=== PATIENT | female | born 1940 | race Caucasian/White ===

== ENCOUNTER → 2016-10-18 | Outpatient (CLI) | payer MEDICARE, OTHER, BC ==
[~2016-10-18] MED LIST: ASPI81TA85 PO; CALTTAB5 PO; DIOV160T2 PO; ESTE500T PO; MULT1TAB10 PO; OCUVTAB PO; OGEN PO; PRIL20CA9 PO; PROA1AER INH; VITA20008 PO; [UNRECOGNIZED DRUG - OTHER] INH
--- NOTE | 2016-10-18 15:38 | REPMRS ---
Patient History The patient states she has not had a clinical breast exam in over a year. Patient is postmenopausal and has history of other cancer. Family history of prostate cancer in brother at age 67. Benign excisional biopsy of the right breast, 1974. Took hormonal contraceptives for 1 year. Taking estrogen for 39 years. Digital Woman Screen Mammo: October 18, 2016 - Exam #: [id number] Bilateral CC and MLO view(s) were taken. Technologist: Suzie Kearney, Technologist Prior study comparison: October 15, 2015, digital woman screen mammo performed at [facility]. October 13, 2014, digital woman screen mammo performed at [facility]. October 02, 2013, bilateral bilat screen digital mammo, performed at [facility] ([facility]). FINDINGS: There are scattered fibroglandular densities. There has been no change in the appearance of the mammogram from the prior studies. There is a mild amount of scattered fibroglandular density which is fairly symmetric. There is no interval development of dominant mass, architectural distortion, or clustered microcalcification suggestive of malignancy. ASSESSMENT: BI-RADS/ACR category 1 mammogram. Negative. Recommendation Routine screening mammogram in 1 year (for women over age 40). This mammogram was interpreted with the aid of an FDA-approved computer-aided dectection system. Electronically Signed By: Luis Gustafson MD 10/18/16 [id number]
== END ==
LOC: M WHC 14:09
PROVIDERS: ATTEND Nurse Practitioner Adult Health
DX: Z12.31 Encounter for screening mammogram for malignant neoplasm of breast (principal); Z92.23 Personal history of estrogen therapy

== ENCOUNTER → 2016-12-20 | Outpatient (CLI) | payer MEDICARE, OTHER, BC ==
[~2016-12-20] MED LIST changes: -PROA1AER INH; +PROAAER10 INH
--- NOTE | 2016-12-20 09:43 | REP ---
Chest two views HISTORY: Asthma Comparison: 07/23/2015 The lungs are hyperinflated. Minimal increase in interstitial markings is present in the lower lobes consistent with chronic interstitial change. The heart is normal in size. The pulmonary vasculature is normal in appearance. Degenerative change is present in the thoracic spine. IMPRESSION: Bibasilar chronic interstitial fibrosis. Signed by Levi Power MD 12/20/2016 09:35 A
== END ==
LOC: M WUC 09:15
PROVIDERS: ATTEND Physician Assistant
DX: J45.21 Mild intermittent asthma with (acute) exacerbation (principal); J84.10 Pulmonary fibrosis, unspecified

== ENCOUNTER → 2017-01-23 | Outpatient (CLI) | payer MEDICARE, OTHER, BC ==
--- NOTE | 2017-01-23 10:43 | REP ---
Clinical: Pain. Technique: AP, lateral, bilateral oblique views of the left hand. Findings: Age-related degenerative changes include increased sclerosis to the radial surface with decreased radiocarpal joint space as well as subtle decreased joint space at the first and second carpometacarpal joints. Evaluation of the digits demonstrates subchondral sclerosis and joint space narrowing of the interphalangeal joints as well as mild swelling of the proximal interphalangeal joints. No acute fracture dislocation. Impression: Mild arthritic degenerative changes. Signed by Gavino Pina MD 01/23/2017 10:35 A
== END ==
LOC: M WUC 10:24
PROVIDERS: ATTEND Physician Assistant
DX: M79.642 Pain in left hand (principal); M19.042 Primary osteoarthritis, left hand

== ENCOUNTER → 2019-10-30 | Outpatient (CLI) | payer MEDICARE, OTHER, BC ==
[~2019-10-30] MED LIST changes: -ASPI81TA85 PO; +ASPI81TA86 PO; -DIOV160T2 PO; +DIOV160T3 PO
--- NOTE | 2019-10-30 14:36 | REP ---
RIGHT RIB SERIES: Five views including PA chest. HISTORY: Contusion. COMPARISON CHEST X-RAY: December 20, 2016 and April 22, 2019. FINDINGS: PA chest radiograph shows no evidence of pneumothorax or hydrothorax. Mediastinum is not widened. Heart is not enlarged. The aorta is calcific. There is a subtle area of pleural thickening at the right base. Multiple views of the right ribcage demonstrate a mildly displaced fracture of the right posterolateral 7th through 11th ribs. There is some adjacent swelling and on one of the oblique radiographs, there are a few bubbles of extrathoracic soft tissue emphysema implying some degree of pulmonary parenchymal injury. No pneumothorax or pulmonary contusion is appreciated. IMPRESSION: Mildly displaced fracture of the right 7th through 11th posterolateral ribs. There is associated extrathoracic soft tissue emphysema implying some degree of pulmonary parenchymal injury. There is no visible pneumothorax or hemothorax. Consider followup. Electronically Signed by Andrew Gustafson MD 10/30/2019 05:17 P
== END ==
LOC: M WUC 11:35
PROVIDERS: ATTEND Physician Assistant
DX: S20.221A Contusion of right back wall of thorax, initial encounter (principal); X58.XXXA Exposure to other specified factors, initial encounter; Y92.89 Other specified places as the place of occurrence of the external cause; Y93.9 Activity, unspecified; Y99.9 Unspecified external cause status

== ENCOUNTER → 2019-12-20 | Outpatient (REF) | payer MEDICARE, OTHER | LOC: M LAB REF 08:01 | PROVIDERS: ATTEND Physician Assistant | DX: L02.214 Cutaneous abscess of groin (principal) ==

== ENCOUNTER → 2021-10-24 | Outpatient (CLI) | payer MEDICARE, OTHER, BC ==
[~2021-10-24] MED LIST changes: +ALBU8.5H; +ARNU1INH3 INH; +COQ-30CA2 PO; +ECOT81TA5 PO; +EQL50TAB2 PO; +ESTR1TAB PO; +FAMO40TA3; +FAMO40TA3 PO; +GINK1CAP PO; +LOSA100T8 PO; +OCUVCAP2 PO; +PROB250C PO; +RA T500C2 PO; +SUCR1TAB56 PO; +VITA100065 PO; +VITA100093 PO; +VITMTA PO; +ZINC1TAB2 PO; +ZYRTTAB8 PO
== END ==
LOC: M LABSMTC 11:04
PROVIDERS: ATTEND Anesthesiology
DX: Z01.812 Encounter for preprocedural laboratory examination (principal)

== ENCOUNTER 2021-10-28 11:55 | Day surgery (SDC) | payer MEDICARE, OTHER, BC ==
[~2021-10-28] VITALS: Ht 157.5 cm; Wt 62.8 kg
[~2021-10-28 11:55] MED LIST changes: +LIDOCAINE 2% 100MG/5ML SDV (FOR ANES.) As Ordered ONE; +NS 1,000 ML IV ONE; +fentaNYL 100 MCG/2 ML INJECTION As Ordered ONE; +propofoL 200 MG/20 ML VIAL As Ordered ONE
[2021-10-28 13:39] VITALS: BP 143/65
== END 2021-10-28 13:48 | disposition home or self-care (01) ==
LOC: M OPP 11:55
PROVIDERS: ATTEND Surgery
DX: K57.30 Diverticulosis of large intestine without perforation or abscess without bleeding (principal); K57.32 Diverticulitis of large intestine without perforation or abscess without bleeding; K44.9 Diaphragmatic hernia without obstruction or gangrene; K31.89 Other diseases of stomach and duodenum; Z79.82 Long term (current) use of aspirin; Z79.52 Long term (current) use of systemic steroids; Z79.818 Long term (current) use of other agents affecting estrogen receptors and estrogen levels; Z79.899 Other long term (current) drug therapy; Z91.010 Allergy to peanuts; Z91.012 Allergy to eggs
CPT/HCPCS: 43239; 45378; 88305; J3010

== ENCOUNTER → 2022-04-01 | Outpatient (REF) | payer MEDICARE, OTHER, BC ==
[~2022-04-01] MED LIST changes: -LIDOCAINE 2% 100MG/5ML SDV (FOR ANES.) As Ordered ONE; -NS 1,000 ML IV ONE; -fentaNYL 100 MCG/2 ML INJECTION As Ordered ONE; -propofoL 200 MG/20 ML VIAL As Ordered ONE
== END ==
LOC: M LAB REF 12:23
PROVIDERS: ATTEND Physician Assistant Medical
DX: R06.02 Shortness of breath (principal)

== ENCOUNTER → 2022-08-16 | Outpatient (REF) | payer MEDICARE, OTHER, BC | LOC: M LAB REF 12:21 | PROVIDERS: ATTEND Nurse Practitioner Adult Health | DX: N18.32 Chronic kidney disease, stage 3b (principal) ==

== ENCOUNTER → 2022-10-18 | Outpatient (CLI) | payer MEDICARE, OTHER, BC | LOC: M RAD 13:33 | PROVIDERS: ATTEND Internal Medicine Nephrology | DX: N18.30 Chronic kidney disease, stage 3 unspecified (principal) ==

== ENCOUNTER → 2022-10-19 | Outpatient (CLI) | payer MEDICARE, OTHER, BC | LOC: M WHC 12:50 | PROVIDERS: ATTEND Nurse Practitioner Adult Health | DX: Z12.31 Encounter for screening mammogram for malignant neoplasm of breast (principal) ==

== ENCOUNTER → 2022-11-28 | Outpatient (CLI) | payer MEDICARE, OTHER, BC | LOC: M WUC 14:30 | PROVIDERS: ATTEND Physician Assistant Medical | DX: R05.9 Cough, unspecified (principal) ==

== ENCOUNTER → 2023-02-20 | Outpatient (REF) | payer MEDICARE, OTHER, BC | LOC: M LAB REF 11:32 | PROVIDERS: ATTEND Nurse Practitioner Adult Health | DX: N18.32 Chronic kidney disease, stage 3b (principal) ==

== ENCOUNTER → 2023-02-21 | Outpatient (CLI) | payer MEDICARE, OTHER, BC | LOC: M WUC 11:19 | PROVIDERS: ATTEND Nurse Practitioner Adult Health | DX: M25.551 Pain in right hip (principal) ==

== ENCOUNTER → 2023-11-03 | Outpatient (CLI) | payer MEDICARE, OTHER, BC | LOC: M WHC 07:47 | PROVIDERS: ATTEND Nurse Practitioner Adult Health | DX: Z12.31 Encounter for screening mammogram for malignant neoplasm of breast (principal) ==

== ENCOUNTER 2025-01-30 21:27 | Emergency (ER) | payer MEDICARE, OTHER, BC ==
[~2025-01-30] VITALS: Ht 157.5 cm; Wt 65.4 kg
[~2025-01-30 21:27] MED LIST changes: -EQL50TAB2 PO; -RA T500C2 PO; +TURM500C10 PO; +VITA1TAB82 PO
[2025-01-30 23:29] LABS: BASO # 0.0 10^3/uL (0.0-0.2); BASO % 0.4 % (0.0-1.0); EOS # 0.4 10^3/uL (0.0-0.5); EOS % 4.2 % (0.0-3.0); LYMPH # 1.5 10^3/uL (1.5-5.0); LYMPH % 16.3 % (24.0-44.0); MONO # 0.9 10^3/uL (0.0-0.8); MONO % 9.5 % (2.0-8.0); NEUTROPHILS # 6.3 10^3/uL (1.5-8.5); NEUTROPHILS % 69.2 % (36.0-66.0); PLATELET COUNT, AUTOMATED 251 10^3/uL (150-450)
[2025-01-30 23:34] LABS: ERYTHROCYTE SEDIMENTATION RATE 34 mm/hr (0-30)
[2025-01-31 00:04] LABS: C REACTIVE PROTEIN QUANTITATIV 1.99 MG/DL (<1.0); CALCIUM LEVEL 9.0 MG/DL (8.3-10.6); CARBON DIOXIDE LEVEL 26.0 MMOL/L (20-31); CHLORIDE LEVEL 108.0 MMOL/L (98-107); CREATININE FOR GFR 1.22 MG/DL (0.55-1.30); GLOMERULAR FILTRATION RATE 43.8 (>32); POTASSIUM SERUM 4.3 MMOL/L (3.5-5.1); SODIUM LEVEL 142.0 MMOL/L (136-145)
[2025-01-31 02:47] VITALS: BP 165/75; TEMP 98.3; O2SAT 98
== END 2025-01-31 04:35 | disposition left against medical advice (07) ==
LOC: M ED 21:27
DX: Z53.21 Procedure and treatment not carried out due to patient leaving prior to being seen by health care provider (principal)